=== PATIENT | female | born 1995 | race Caucasian/White ===

== ENCOUNTER 2020-11-09 16:52 | Inpatient (IN) | payer BC ==
[~2020-11-09] VITALS: Ht 162.6 cm; Wt 99.3 kg
[2020-11-09] MEDS ORDERED: PRENATAL TABLE1 EAC1 PO (18:02)
[2020-11-09] MEDS ORDERED: OMEPRAZOLE20 M2 PO (18:03)
[2020-11-09 18:29] LABS: HEMOGLOBIN 11.7 gm/dl (12.3-15.3); RED BLOOD COUNT 4.01 M/UL (4.00-5.10); WHITE BLOOD COUNT 9.4 K/UL (4.5-11.0)
[2020-11-11 06:47] LABS: HEMOGLOBIN 11.6 gm/dl (12.3-15.3)
[2020-11-11] MEDS ORDERED: HYDROCODON-ACE1 EAC6 PO (09:54)
[2020-11-11] MEDS ORDERED: COLACE 100MG C100 MG PO (09:54)
[2020-11-11] MEDS ORDERED: IBUPROFEN600 MG PO (09:54)
== END 2020-11-11 20:05 | disposition home or self-care (01) | DRG 786 ==
LOC: GENOP 16:52 → OB 17:33
PROVIDERS: ADMIT Obstetrics & Gynecology
PROC: 4A1HXCZ Monitoring of Products of Conception, Cardiac Rate, External Approach (ICD-10-PCS; 2020-11-09)
PROC: 0U7C7ZZ Dilation of Cervix, Via Natural or Artificial Opening (ICD-10-PCS; 2020-11-09)
PROC: 10907ZC Drainage of Amniotic Fluid, Therapeutic from Products of Conception, Via Natural or Artificial Opening (ICD-10-PCS; 2020-11-09)
PROC: 10D00Z1 Extraction of Products of Conception, Low, Open Approach (ICD-10-PCS; principal; 2020-11-10 17:01)
DX: O13.4 Gestational [pregnancy-induced] hypertension without significant proteinuria, complicating childbirth (principal); U07.1 COVID-19; O98.52 Other viral diseases complicating childbirth; Z20.822 Contact with and (suspected) exposure to COVID-19; O76 Abnormality in fetal heart rate and rhythm complicating labor and delivery; Z3A.39 39 weeks gestation of pregnancy; Z37.0 Single live birth; Z90.49 Acquired absence of other specified parts of digestive tract; O62.2 Other uterine inertia; O69.1XX0 Labor and delivery complicated by cord around neck, with compression, not applicable or unspecified
CPT/HCPCS: 36415; 81001; 82800; 84156; 85014; 85018; 85025; C9113; J0690; J2210; J2274; J2370; J2405; J2590; J2795; J3010; J7120; U0002

== ENCOUNTER → 2020-11-09 | Outpatient (CLI) | payer BC ==
[~2020-11-09] MED LIST: COLACE 100MG C100 MG PO; HYDROCODON-ACE1 EAC6 PO; IBUPROFEN600 MG PO; OMEPRAZOLE20 M2 PO; PRENATAL TABLE1 EAC1 PO
[2020-11-09 18:34] LABS: URINE TOTAL PROTEIN 15 mg/dl
== END ==
LOC: LBRF 17:06
PROVIDERS: Obstetrics & Gynecology
DX: Z53.8 Procedure and treatment not carried out for other reasons (principal)
CPT/HCPCS: 84156